=== PATIENT | male | born 1950 | race Caucasian/White ===

== ENCOUNTER 2025-01-24 13:00 | Outpatient (CLI) | payer MEDICARE, SELFPAY ==
--- NOTE | ~2025-01-24 | US_ITS ---
BILATERAL LOWER EXTREMITY VENOUS ULTRASOUND Ordering provider: Fernando Venegas, History: . EDEMA . Comparison: None. FINDINGS: RIGHT LOWER EXTREMITY VEINS: --COMMON FEMORAL: Patent and free of thrombus. Normal compressibility, phasic flow and augmentation. --PROXIMAL SUPERFICIAL FEMORAL: Patent and free of thrombus. Normal compressibility, phasic flow and augmentation. --DISTAL SUPERFICIAL FEMORAL: Patent and free of thrombus. Normal compressibility, phasic flow and au gmentation. --POPLITEAL: Patent and free of thrombus. Normal compressibility, phasic flow and augmentation. --POSTERIOR TIBIAL: Patent and free of thrombus. Normal compressibility, phasic flow and augmentation . LEFT LOWER EXTREMITY VEINS: --COMMON FEMORAL: Patent and free of thrombus. Normal compressibility, phasic flow and augmentation. --PROXIMAL SUPERFICIAL FEMORAL: Patent and free of thrombus. Normal compressibility, phasic flow and augmentation. --DISTAL SUPERFICIAL FEMORAL: Patent and free of thrombus. Normal compressibility, phasic flow and au gmentation. --POPLITEAL: Patent and free of thrombus. Normal compressibility, phasic flow and augmentation. --POSTERIOR TIBIAL: Patent and free of thrombus. Normal compressibility, phasic flow and augmentation . IMPRESSION: Negative bilateral lower extremity venous US. No deep vein thrombosis. Reviewed, dictated and finalized at location A.
--- OUTSIDE RECORDS SUMMARY | 2025-01-24 13:14 | XMS_ITS | Referral Summary ---
Author Organization [facility] Physician Of [facility] [address] [place] [id number] Care Team Providers Care Cvicu Nurse Name Role Phone Fernando Venegas MD Primary Care Provider [phone] [phone] Encounters Date Type Department Care Team Description 01/08/2025 8:20 AM CDT - 01/08/2025 11:59 PM CDT Hospital Encounter [address] [address] Abnormal weight loss Discharge Disposition: Discharge to home or self care from Last 3 Months Allergies Active Allergy Reactions Criticality Noted Date Comments Sulfa (Sulfonamide Antibiotics) Unknown,Hives,Rash Medium 05/14/2015 Rash Medications busPIRone (BUSPAR) 15 mg tablet Take 1 tablet (15 mg total) by mouth 3 (three) times a day Active cinnamon bark 500 mg capsule Take 2 capsules (1,000 mg total) by mouth daily Active turmeric-turmer ic root extract 450-50 mg capsule Take 1 tablet by mouth daily Active cetirizine (ZyrTEC) 10 mg tablet Take 1 tablet (10 mg total) by mouth daily Active cholecalciferol (VITAMIN D-3) 2,000 unit tablet Active omeprazole (PriLOSEC) 20 mg capsule 1 capsule (20 mg total) daily Active coenzyme Q10 10 mg capsule Take 1 tablet by mouth daily Active atorvastatin (LIPITOR) 10 mg tablet Take 1 tablet (10 mg total) by mouth nightly 0 Active olmesartan (BENICAR) 20 mg tablet Take 1 tablet (20 mg total) by mouth daily 2 Active vitamins A,C,E-zinc-drea er 7,160-113-100 jzwr-do-ynrn tablet,delayed release (DR/EC) Take 2 capsules by mouth daily Active aspirin 81 mg enteric coated tabletIndicatio ns:Deep Vein Thrombosis Prevention Take 1 tablet (81 mg total) by mouth 2 (two) times a day 60 tablet 2 Active Additional Information Patient not taking.Reported on 12/24/2022 HYDROcodone-jose taminophen (NORCO) 10-325 mg per tabletIndicatio ns:Pain Take 1 tablet by mouth every 4 (four) hours as needed for pain 40 tablet 2 Active Additional Information Patient not taking.Reported on 07/23/2022 Active Problems Problem Noted Date Diagnosed Date Arthrosis of ankle, right 07/08/2022 Primary osteoarthritis of right ankle 05/28/2022 Overview (05/28/2022): Added automatically from request for surgery [id number] Social History Tobacco Use Types Packs/Day Years Used Date Smoking Tobacco: Never Smokeless Tobacco: Never Tobacco Cessation:Counseling Given: Not Answered Alcohol Use Standard Drinks/Week Comments Yes 0 (1 standard drink = 0.6 oz pur e alcohol) Social Connection and Isolat ion Panel [NHANES] Answer Date Recorded In a typical week, how many times do you talk on the phone with family, friends, or neighbors? More than three times a week 07/09/2022 How often do you get togethe r with friends or relatives? More than three times a week 07/09/2022 How often do you attend chur ch or jehovah's witness services? Never 07/09/2022 Do you belong to any clubs o r organizations such as protestant groups, unions, fraternal or athletic groups, or school groups? No 07/09/2022 How often do you attend meet ings of the clubs or organizations you belong to? Never 07/09/2022 Are you , , di vorced, , never , or living with a partner? 07/09/2022 AUDIT-C Answer Date Recorded Q1: How often do you have a drink containing alc ohol? Monthly or less 07/08/2022 Q2: How many drinks containi ng alcohol do you have on a typical day when you are drinking? 1 or 2 07/08/2022 Q3: How often do you have si x or more drinks on one occasion? Never 07/08/2022 Overall Financial Resource Strain (CARDIA) Answe r Date Recorded How hard is it for you to pa y for the very basics like food, housing, medical care, and heating? Not hard at all 07/09/2022 PRAPARE - Transportation Answer Date Re corded In the past 12 months, has l ack of transportation kept you from medical appointments or from getting medications? No 06/13 In the past 12 months, has l ack of transportation kept you from meetings, work, or from getting things needed for daily living? 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 Gender Identity Not on file Sexual Orientation Not on file Last Filed Vital Signs Vital Sign [place] Time Taken Comments Blood Pressure 123/65 07/09/2022 11:00 AM CUTTING SUPERVISOR Pulse 88 07/09/2022 11:00 AM CUTTING SUPERVISOR Temperature 36.6 C (97.9 F) 07/09/2022 11:00 AM CUTTING SUPERVISOR Respiratory Rate 18 07/09/2022 11:00 AM CUTTING SUPERVISOR Oxygen Saturation 96% 07/09/2022 11:00 AM CUTTING SUPERVISOR Inhaled Oxygen Concentration - - Weight 99.3 kg (219 lb) 12/24/2022 10:42 AM CDT Height 175.3 cm (5' 9) 12/24/2022 10:42 AM CDT Body Mass Index 32.34 12/24/2022 10:42 AM CDT Plan of Treatment Not on file Medical Devices Implanted Type Area Support Architect Device Identifier Shelf Expiration Date Model / Serial / Lot Fina Doss l: Knee Synthes Lcp 52mm 6 Hole Low Profile Cut To Length Plate Bone Stainless 249.676 - [id number] Implanted:Qty: 1 on 07/08/2022 by Wallace Alfaro DO at [facility] Right: Ankle Synthes I 249.676 / / Synthes 2.4mm 4mm 28mm Self Tap Self Retain Stardrive Low Profile Cortex 201.778 - [id number] Implanted:Qty: 1 on 07/08/2022 by Wallace Alfaro DO at [facility] Right: Ankle Synthes I 201.778 / / Synthes 2.4mm 4mm 30mm Self Tap Self Retain Stardrive Low Profile Cortex 201.780 - [id number] Implanted:Qty: 1 on 07/08/2022 by Wallace Alfaro DO at [facility] Right: Ankle Synthes I 201.780 / / Synthes 2.4mm 4mm 36mm Self Tap Self Retain Stardrive Low Profile Cortex 201.786 - [id number] Implanted:Qty: 1 on 07/08/2022 by Wallace Alfaro DO at [facility] Right: Ankle Synthes I 201.786 / / [employer] Infinity Knee 3 Tray Tibial Adaptis [id number] - [id number] Implanted:Qty: 1 on 07/08/2022 by Wallace Alfaro DO at [facility] Right: Ankle [employer] 01/07/2028 [id number] / / [id number] [employer] Inbone Sulcus Ankle 3 Dome Component Talar [id number] - [id number] Implanted:Qty: 1 on 07/08/2022 by Wallace Alfaro DO at [facility] Right: Ankle [employer] 05/19/2030 [id number] / / [id number] [employer] Ankle 1 Large 10mm Stem Talar [id number] - [id number] Implanted:Qty: 1 on 07/08/2022 by Wallace Alfaro DO at [facility] Right: Ankle [employer] 01/06/2029 [id number] / / [id number] [employer] Inbone 8mm Ankle 3 Implant Fixation Everlast [id number] - [id number] Implanted:Qty: 1 on 07/08/2022 by Wallace Alfaro DO at [facility] Right: Ankle [employer] [id number] 01/22/2028 [id number] / / [id number] [employer] Screw Bone Cannulated St Full Thread Darco 4.0x60mm Ti [id number] - [id number] Implanted:Qty: 1 on 07/08/2022 by Wallace Alfaro DO at [facility] Right: Ankle [employer] [id number] / / [employer] Speedbridge Jumpstart Achilles System Fixation Biocomposite Ster [id number] - [id number] Implanted:Qty: 1 on 07/08/2022 by Wallace Alfaro DO at [facility] Right: Ankle [employer] 01/09/2026 [id number] / / [id number] Synthes 6.5mm 7.9mm 2.9mm 55mm 16mm Cannulated Self Tap Self Drill 408.406 - [id number] Implanted:Qty: 2 on 07/08/2022 by Wallace Alfaro DO at [facility] Right: Ankle Synthes I 408.406 / / Explanted Type Area Support Architect Device Identifier Shelf Expiration Date Model / Serial / Lot A[employer] K-Wire 1.4mm 228mm Wire Fixation [id number] - [id number] Explanted:Qty: 2 on 07/08/2022 at [facility] Right: Ankle [employer] [id number] / / Procedures Procedure Name Priority Date/Time Associated Diagnosis Comments CT ABDOMEN PELVIS W WO CONTRAST Schedule Routine, Read Routine (OP Routine) 01/08/2025 8:45 AM CDT Abnormal weight loss POCT CREATININE FOR CONTRAST EVALUATION Routine 01/08/2025 8:41 AM CDT PSA DIAGNOSTIC Routine Gen Lab 05/01/2017 12:39 PM CDT from Last 3 Months or Most Recently Relevant to Health Maintenance Results * CT Abdomen Pelvis W WO Contrast (01/08/2025 8:45 AM CDT) Anatomical Region Laterality Modality Body N/A Computed Tomogra phy 01/12/2025 8:27 AM CDT Narrative 01/12/2025 8:32 AM CDT EXAM DESCRIPTION: CT ABDOMEN PELVIS W WO CONTRAST REASON FOR STUDY: R63.4 Nausea since the 24 of november. 20 lbs weight loss in 6 weeks, due to loss of appetite and nausea when eating TECHNIQUE: CT scan of the abdomen and pelvis performed without and with intravenous and without oral contrast using helical scanning technique with dynamic intravenous contrast injection. Reconstructed coronal and sagittal MPR images reviewed. All images stored on PACS. Automated exposure control was used as a dose optimization technique for this examination. CONTRAST TYPE/DOSE: 100mL of IOVERSOL 350 MG IODINE/ML INTRAVENOUS SYRINGE injected via intravenous COMPARISON: 04/10/2017 FINDINGS: LOWER CHEST: No significant pulmonary abnormalities. No effusion. LIVER: Normal size. No identified cystic or solid masses. GALLBLADDER: Normally distended BILE DUCTS: No intrahepatic or extrahepatic ductal dilatation. SPLEEN: Normal size. No focal lesions. PANCREAS: No identified cystic or solid masses. No significant calcifications. No adjacent inflammation or peripancreatic fluid collections. Pancreatic duct not dilated. ADRENALS: Normal. KIDNEYS/URINARY TRACT: No obstructing stone or hydronephrosis. Lower pole caliceal stone on the right measures 0.4 cm. No perinephric stranding. Urinary bladder is unremarkable. GI: No dilated bowel loops. No obvious wall thickening. Normal appendix. No significant diverticular disease. PERITONEUM: No ascites or free air. RETROPERITONEUM: No mass or adenopathy. REPRODUCTIVE: No significant abnormality. VASCULATURE: No abdominal aortic aneurysm. MUSCULOSKELETAL: Minimal right-sided joint effusion at the hip. OTHER: No other abnormality. IMPRESSION: 1. No acute finding. 2. 0.4 cm nonobstructing lower pole caliceal stone on the right. 3. Minimal right-sided joint effusion at the hip. THIS IS AN ELECTRONICALLY VERIFIED FINAL REPORT 01/12/2025 8:32 AM - Electronically signed by Mike Ferro M.D. RB: NOELLE Report ID: [id number] [place] Location: [id number] Procedure Note Mike Ferro MD - 01/12/2025 EXAM DESCRIPTION: CT ABDOMEN PELVIS W WO CONTRAST REASON FOR STUDY: R63.4 Nausea since the 24 of november. 20 lbs weight loss in 6 weeks, due to lossof appetite and nausea when eating TECHNIQUE: CT scan of the abdomen and pelvis performed without and with intravenous and without oral contrast using helical scanning techniquewith dynamic intravenous contrast injection. Reconstructed coronal and sagittalMPR images reviewed. All images stored on PACS. Automated exposure control was used as a dose optimization technique for this examination. CONTRAST TYPE/DOSE: 100mL of IOVERSOL 350 MG IODINE/ML INTRAVENOUSSYRINGE injected via intravenous COMPARISON: 04/10/2017 FINDINGS: LOWER CHEST: No significant pulmonary abnormalities. Noeffusion. LIVER: Normal size. No identified cystic or solid masses. GALLBLADDER: Normally distended BILE DUCTS: No intrahepatic or extrahepatic ductal dilatation. SPLEEN: Normal size. No focal lesions. PANCREAS: No identified cystic or solid masses. No significant calcifications. No adjacent inflammation or peripancreatic fluidcollections. Pancreatic duct not dilated. ADRENALS: Normal. KIDNEYS/URINARY TRACT: No obstructing stone or hydronephrosis. Lower pole caliceal stone on the right measures 0.4 cm. No perinephric stranding. Urinary bladder is unremarkable. GI: No dilated bowel loops. No obvious wall thickening. Normalappendix. No significant diverticular disease. PERITONEUM: No ascites or free air. RETROPERITONEUM: No mass or adenopathy. REPRODUCTIVE: No significant abnormality. VASCULATURE: No abdominal aortic aneurysm. MUSCULOSKELETAL: Minimal right-sided joint effusion at the hip. OTHER: No other abnormality. IMPRESSION: 1. No acute finding. 2. 0.4 cm nonobstructing lower pole caliceal stone on the right. 3. Minimal right-sided joint effusion at the hip. THIS IS AN ELECTRONICALLY VERIFIED FINAL REPORT 01/12/2025 8:32 AM - Electronically signed by Mike Ferro M.D. RB: NOELLE Report ID: [id number] [place] Location: [id number] Lucero Jones MD IM CT PROCEDURES Final R esult * POCT creatinine for contrast evaluation (01/08/2025 8:41 AM CDT) Creatinine POC 0.80 0.80 - 1.30 mg/dL Comment:Testing performed by : [facility], [address] [place] [address]., [address] Blood 01/08/2025 8:41 AM CDT 01/08/2025 8:41 AM CDT us Lucero Jones MD POINT OF CARE TEST ORDERA BLES Final Result [facility] [address] [facility] Department [place] [address] * PSA diagnostic (05/01/2017 12:39 PM CDT) PSA-Total 0.3 0.1 - 4.0 ng/mL [facility] Blood specimen (specimen) 05/01/2017 12:39 PM CDT 05/01/2017 12:44 PM CDT us Notinfile Unknown LAB BLOOD ORDERABLES Final Res ult Performing Organization Address City/[facility] Co de Phone Number [facility] Department [place] [address] from Last 3 Months or Most Recently Relevant to Health Maintenance Insurance MEDICARE [facility] MEDICARE [facility] MEDICARE Care Teams Cvicu Nurse Relationship Specialty Start Date End Date Fernando Venegas MD [phone] [address] PCP - General Family Medicine 12/30/24
--- OUTSIDE RECORDS SUMMARY | 2025-01-24 13:14 | XMS_ITS | Clinical Summary ---
Author Organization [facility] Physician Of [facility] [address] [place] [id number] Care Team Providers Care Quality Systems Manager Name Role Phone Fernando Venegas MD Primary Care Provider +1 [phone] Allergies Active Allergy Reactions Criticality Noted Date [...] daily 2 Active vitamins A,C,E-zinc-drea er 7,160-113-100 xzkk-tr-anlg tablet,delayed release (DR/EC) Take 2 capsules by [...] (05/28/2022): Added automatically from request for surgery [id number] Encounters Date Type Department Care Team Description 01/08/2025 8:20 AM CDT - 01/08/2025 11:59 PM CDT Hospital Encounter [address] [address] Abnormal weight loss Discharge Disposition: Discharge to home or self care from Last 3 Months Surgical History Surgery Date Site/Laterality Comments CA ARTHROPLASTY KNEE TIBIAL PLATEAU 07/13/2010 - 07/12/2011 Left Knee Replacement - (Added by TW Conv) CA BX/EXC LYMPH NODE OPEN SUPERFICIAL 07/13/2014 - 07/12/2015 N/A Biopsy Lymph Node - (Added by TW Conv) EXTRACORPOREAL SHOCK WAVE LITHOTRIPSY N/A Lithotripsy - (Added by TW Conv); 8 and 24 years ago CA PROSTATE NEEDLE BIOPSY ANY APPROACH Needle Biopsy Of Prostate - (Added by TW Conv) SKIN BIOPSY Medical History Medical History Date Comments Prostate cancer (HCC) Gastric reflux Hypercholesteremia Hypertension Kidney stone GERD (gastroesophageal reflux disease) Arthritis Family History Medical History Relation Name Comments Hypertension Father Family history of hypertension - (Added by TW Conv) Diabetes Mother Family history of diabetes mellitus - (Added by TW Conv) Hypertension Other Family history of hypertension - (Added by TW Conv) Relation Name Status Comments Father Mother Other Social History Tobacco Use Types Packs/Day Years [...] often do you attend chur ch or restoration services? 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 [employer] MEDIA Gender Identity Not on file Sexual Orientation Not on file Obstetrics History Last Filed Vital Signs Vital Sign [place] Time Taken Comments Blood Pressure 123/65 07/09/2022 11:00 AM PROJECT MANAGER [employer]TERTAINMENT [employer] MEDIA Pulse 88 07/09/2022 11:00 AM PROJECT MANAGER ENTERTAINMENT AND MEDIA Temperature 36.6 C (97.9 F) 07/09/2022 11:00 AM PROJECT MANAGER ENTERTAINMENT AND MEDIA Respiratory Rate 18 07/09/2022 11:00 AM PROJECT MANAGER ENTERTAINMENT AND MEDIA Oxygen Saturation 96% 07/09/2022 11:00 AM PROJECT MANAGER ENTERTAINMENT AND MEDIA Inhaled Oxygen Concentration - - Weight 99.3 kg (219 lb) 12/24/2022 10:42 AM CDT Height 175.3 cm (5' 9) 12/24/2022 10:42 AM CDT Body Mass Index 32.34 12/24/2022 10:42 AM CDT Plan of Treatment Health Maintenance Due Date Last Done Comments Colon Cancer Screening-Colonoscopy 1950 Depression Screening 1950 Hepatitis C Screening 1950 Hepatitis B Screening 1969 Well Visit 65+ 2016 Pneumococcal vaccine 65+ (2 of 2 - PCV) 06/28/2020 06/28/2019 DTaP/Tdap/Td Vaccine (1 - Tdap) 07/17/2020 Fall Risk Assessment 07/09/2023 07/09/2022 Covid-19 Vaccine (2023-2 5 season) 2024 04/10/2022, 02/12/2022, 12/04/2021, Additional history exists Influenza Vaccine (#1) 2025 2, 03/21/2021, 03/02/2018, Additional history exists Prostate Cancer Screening-PSA Discontinued 05/01/2017 Zoster Vaccine Completed 05/18/2018, 03/01/2018 Abdominal Aortic Aneurysm (A AA) Screen Completed 01/08/2025, 07/03/2017, 07/03/2017, Additional history exists Medical Devices Implanted Type Area Chemical Plant Technical Director Device Identifier Shelf Expiration Date Model / Serial / Lot Fina Doss l: Knee Synthes Lcp 52mm 6 Hole Low Profile Cut To Length Plate Bone Stainless 249.676 - [id number] Implanted:Qty: 1 on 07/08/2022 by Wallace Alfaro DO at [facility] Right: Ankle Synthes I 249.676 / / Synthes 2.4mm 4mm 28mm Self Tap Self Retain Stardrive Low Profile Cortex 201.778 - [id number] Implanted:Qty: 1 on 07/08/2022 by Wallace Alfaro DO at [facility] Right: Ankle Synthes I 201.778 / / Synthes 2.4mm 4mm 30mm Self Tap Self Retain Stardrive Low Profile Cortex 201.780 - [id number] Implanted:Qty: 1 on 07/08/2022 by Wallace Alfaro DO at [facility] Right: Ankle Synthes I 201.780 / / Synthes 2.4mm 4mm 36mm Self Tap Self Retain Stardrive Low Profile Cortex 201.786 - [id number] Implanted:Qty: 1 on 07/08/2022 by Wallace Alfaro DO at [facility] Right: Ankle Synthes I 201.786 / / [employer] Infinity Knee 3 Tray Tibial Adaptis [id number] - [id number] Implanted:Qty: 1 on 07/08/2022 by Wallace Alfaro DO at [facility] Right: Ankle [employer] 01/07/2028 [id number] / / [id number] [employer] Inbone Sulcus Ankle 3 Dome Component Talar [id number] - [id number] Implanted:Qty: 1 on 07/08/2022 by Wallace Alfaro DO at [facility] Right: Ankle [employer] 05/19/2030 [id number] / / [id number] [employer] Ankle 1 Large 10mm Stem Talar [id number] - [id number] Implanted:Qty: 1 on 07/08/2022 by Wallace Alfaro DO at [facility] Right: Ankle [employer] 01/06/2029 [id number] / / [id number] [employer] Inbone 8mm Ankle 3 Implant Fixation Everlast [id number] - [id number] Implanted:Qty: 1 on 07/08/2022 by Wallace Alfaro DO at [facility] Right: Ankle [employer] [id number] 01/22/2028 [id number] / / [id number] [employer] Screw Bone Cannulated St Full Thread Darco 4.0x60mm Ti [id number] - [id number] Implanted:Qty: 1 on 07/08/2022 by Wallace Alfaro DO at [facility] Right: Ankle [employer] [id number] / / [employer] Speedbridge Jumpstart Achilles System Fixation Biocomposite Ster [id number] - [id number] Implanted:Qty: 1 on 07/08/2022 by Wallace Alfaro DO at [facility] Right: Ankle [employer] 01/09/2026 [id number] / / [id number] Synthes 6.5mm 7.9mm 2.9mm 55mm 16mm Cannulated Self Tap Self Drill 408.406 - [id number] Implanted:Qty: 2 on 07/08/2022 by Wallace Alfaro DO at [facility] Right: Ankle Synthes I 408.406 / / Explanted Type Area Chemical Plant Technical Director Device Identifier Shelf Expiration Date Model / Serial / Lot We[employer] K-Wire 1.4mm 228mm Wire Fixation [id number] - [id number] Explanted:Qty: 2 on 07/08/2022 at [facility] Right: Ankle [employer] [id number] / / Procedures Procedure Name Priority Date/Time [...] Mike Ferro M.D. RB: NOELLE Report ID: [id number] [place] Location: [id number] Procedure Note Mike Ferro MD - 01/12/2025 [...] Mike Ferro M.D. RB: NOELLE Report ID: [id number] [place] Location: [place] [address] Lucero Jones MD IMG CT PROCEDURES Final R esult * POCT creatinine for contrast evaluation (01/08/2025 8:41 AM CDT) Creatinine POC 0.80 0.80 - 1.30 mg/dL Comment:Testing performed by : [facility], [address] [place] [address]., [id number] Blood 01/08/2025 8:41 AM CDT 01/08/2025 8:41 AM CDT Lucero Jones MD POINT OF CARE TEST ORDERA BLES Final Result [facility] [address] [facility] Department [place] [address] * PSA diagnostic (05/01/2017 12:39 PM CDT) PSA-Total 0.3 0.1 - 4.0 ng/mL [facility] Blood specimen (specimen) 05/01/2017 12:39 PM CDT 05/01/2017 12:44 PM CDT us Notinfile Unknown LAB BLOOD ORDERABLES Final Res ult [facility] Department [place] [address] from Last 3 Months or Most Recently Relevant to Health Maintenance Insurance MEDICARE [employer] [place] MEDICARE [employer] [facility] MEDICARE Care Teams Quality Systems Manager Relationship Specialty Start Date End Date Fernando Venegas MD [address] [address] PCP - General Family Medicine 12/30/24
--- OUTSIDE RECORDS SUMMARY | 2025-01-24 13:14 | XMS_ITS | Clinical Summary ---
Author Organization [facility] Address [address] [place] [address] Care Team Providers Care Food Prep Worker Name Role Phone Gatito Little MD Primary Care Provider Allergies Active Allergy Reactions Criticality Noted Date Comments Sulfa Antibiotics Hives,Rash Low 07/15/2017 Medications atorvastatin 10 MG tablet Take 1 tablet by mouth nightly. 05/02/2017 Active busPIRone 15 MG tablet Take 1 tablet by mouth 2 (two) times a day. 05/05/2017 Active lisinopril 5 MG tablet Take 1 tablet by mouth daily. 05/04/2017 Active omeprazole 20 MG capsule Take 20 mg by mouth daily. Active Cholecalciferol (VITAMIN D) 2000 UNITS Tab Take 1 tablet by mouth. Active Coenzyme Q10 (CO Q 10) 10 MG Cap Take 1 tablet by mouth daily. Active cetirizine 10 MG chewable tablet Chew 10 mg by mouth daily. Active Turmeric 450 MG Cap Take 1 tablet by mouth daily. Turmeric / curcumin 500mg Active CINNAMON OR Take 2,000 mg by mouth daily. Active hydrocodone-jose taminophen 5-325 MG tablet Take 1 tablet by mouth every 6 (six) hours as needed for Pain. For Moderate Pain 5 tablet 08/18/2018 Active triamcinolone 0.1 % cream 04/17/2020 Active [place]-3 Fatty Acids (OMEGA-3 2100) 1050 MG Cap Active olmesartan 20 MG tablet Take 20 mg by mouth daily. 11/02/2020 Active FLUoxetine 10 MG tablet 12/11/2020 Active aspirin EC (ASPIRIN EC) 81 MG tablet Active calcium carb-cholecalci ferol 600-800 MG-UNIT tablet Activ e Active Problems Problem Noted Date Diagnosed Date Nephrolithiasis 06/30/2017 History of kidney stones 06/26/2017 Resolved Problems Problem Noted Date Diagnosed Date Resolved Date Encounter for preventive health examination 06/26/2017 12/31/2020 Immunizations Immunization Administration Dates Next Due Fluzone High Dose - >Age 65 (Prefilled Syringe) 03/02/2018,04/14/2016 Influenza Adult (Generic) 04/26/2013 Pneumococcal (Pneumovax 23) 06/28/2019 Shingrix 05/18/2018,03/01/2018 Td (Tenivac) preservative free 07/16/2020 Family History Medical History Relation Comments Hypertension Brother Asthma Daughter 1 Diabetes Mother Hypertension Mother Stroke Mother Cancer Paternal Uncle prostate cancer Relation Status Comments Brother Alive Daughter 1 Alive Daughter 2 Alive Father (Age 64) abscess post h ernia Mother (Age 80s) stroke Paternal Uncle Son Alive Social History Tobacco Use Types Packs/Day Years Used Date Smoking Tobacco: Never Smokeless Tobacco: Never Tobacco Cessation:Counseling Given: No Alcohol Use Standard Drinks/Week Comments No 0 (1 standard drink = 0.6 oz pur e alcohol) PHQ-2 Answer Date Recorded PHQ-2 Score - If the patient scores above 3, please move on to questions 3-9 0 12/24/2020 Sex and Gender Information Value Date Recorded Sex Assigned at Male 12/24/2020 4:09 PM CDT Legal Sex Male 7:04 PM CDT Gender Identity Male 12/24/2020 4:09 PM CDT Sexual Orientation Straight 12/24/2020 4: 09 PM CDT Last Filed Vital Signs Vital Sign Reading Time Taken Comments Blood Pressure 136/66 04/04/2021 4:14 PM CDT Pulse 79 04/04/2021 4:14 PM CDT Temperature 36.6 C (97.8 F) 08/18/2018 1:15 PM FRAMEWORK DEVELOPER Respiratory Rate 18 08/18/2018 1:15 PM FRAMEWORK DEVELOPER Oxygen Saturation 95% 04/04/2021 4:14 PM CDT Inhaled Oxygen Concentration - - Weight 95.2 kg (209 lb 12.8 oz) 04/04/2021 4:14 PM CDT Height 172.7 cm (5' 8) 04/04/2021 4:14 PM CDT Body Mass Index 31.9 04/04/2021 4:14 PM CDT Plan of Treatment Health Maintenance Due Date Last Done Comments Colorectal Cancer Screening Colonoscopy (10 Years) 1950 Hepatitis C 1969 Annual Medicare Wellness Visit 2016 Pneumococcal Vaccine: 50+ Years (2 of 2 - PCV) 06/28/2020 06/28/2019 DTaP, Tdap and Td Vaccines ( 1 - Tdap) 07/17/2020 07/16/2020 COVID-19 Vaccine (3 - 2023-2 5 season) 2024 08/07/2020, 07/10/2020 RSV Immunization or 60+ Years (1 - 1-dose 75+ series) 2026 Zoster Vaccines Completed 05/18/2018, 03/01/2018 Meningococcal B Vaccine Aged Out No l onger eligible based on patient's age to complete this topic Meningococcal Vaccine Aged Out No juwan dereje eligible based on patient's age to complete this topic RSV Immunizations Under 20 Months Aged Out No longer eligible b ased on patient's age to complete this topic Insurance MEDICARE [employer] Care Teams Food Prep Worker Relationship Specialty Start Date End Date Gatito Little MD [address] [facility] [address] [place] [address] PCP - General 04/04/14
--- OUTSIDE RECORDS SUMMARY | 2025-01-24 13:14 | XMS_ITS | Encounter Summary ---
Author Organization [facility] Facility Care Team Providers Care Tap Puller Name Role Phone Gatito Little MD Primary Care Provider + [phone] Unknown, Notinfile Primary Care Provider Unavail able Gatito Little MD Primary Care Provider + [phone] Fernando Venegas MD Primary Care Provider [phone] Encounter Details Date Type Department Care Team (Latest Contact Info) Description 05/14/2015 Orders Only [facility] CLINCONV Provider, MD Raffy [address] [place] [address] Social History Tobacco Use Types Packs/Day Years Used Date Smoking Tobacco: Never Assessed Sex and Gender Information Value Date Recorded Sex Assigned at Not on file Legal Sex Male 8:15 PM BLOCK ENGRAVER Gender Identity Not on file Sexual Orientation Not on file documented as of this encounter Plan of Treatment Not on file documented as of this encounter Procedures Procedure Name Priority Date/Time Associated Diagnosis Comments PROCEDURE - RESULT 06/04/2015 12 :00 AM BLOCK ENGRAVER documented in this encounter Results * PROCEDURE - RESULT (06/04/2015 12:00 AM BLOCK ENGRAVER) Narrative 06/04/2015 12:00 AM BLOCK ENGRAVER Ordered by an unspecified provider. us Historical Provider Final Res ult documented in this encounter Visit Diagnoses Not on filedocumented in this encounter Care Teams Tap Puller Relationship Specialty Start Date End Date Gatito Little MD [address] [address] PCP - General 03/20/17 04/08/17 Unknown, Notinfile PCP - General 04/09/17 04/09/17 Gatito Little MD [address] [address] PCP - General 04/10/17 12/29/24 Fernando Venegas MD [address] [address] PCP - General Family Medicine 12/30/24 documented as of this encounter
--- OUTSIDE RECORDS SUMMARY | 2025-01-24 13:14 | XMS_ITS | Encounter Summary ---
Author Organization [facility] Facility Care Team Providers Care Clinic Specialist Name Role Phone Gatito Little MD Primary Care Provider + [phone] Unknown, Notinfile Primary Care Provider Unavail able Gatito Little MD Primary Care Provider + [phone] Fernando Venegas MD Primary Care Provider [phone] Encounter Details Date Type Department Care Team (Latest Contact Info) Description 05/01/2015 Orders Only [facility] CLINCONV Provider, MD Raffy [address] [place] [address] Social History Tobacco Use Types Packs/Day Years Used Date Smoking Tobacco: Never Assessed Sex and Gender Information Value Date Recorded Sex Assigned at Not on file Legal Sex Male 8:15 PM HEALTH COACH Gender Identity Not on file Sexual Orientation Not on file documented as of this encounter Plan of Treatment Not on file documented as of this encounter Procedures Procedure Name Priority Date/Time Associated Diagnosis Comments SCAN - PATHOLOGY 08/29/2015 12:0 0 AM HEALTH COACH documented in this encounter Results * SCAN - PATHOLOGY (08/29/2015 12:00 AM HEALTH COACH) Narrative 08/29/2015 12:00 AM HEALTH COACH Ordered by an unspecified provider. us Historical Provider Final Res ult documented in this encounter Visit Diagnoses Not on filedocumented in this encounter Care Teams Clinic Specialist Relationship Specialty Start Date End Date Gatito Little MD [address] [address] PCP - General 03/20/17 04/08/17 Unknown, Notinfile PCP - General 04/09/17 04/09/17 Gatito Little MD [address] [address] PCP - General 04/10/17 12/29/24 Fernando Venegas MD [address] [address] PCP - General Family Medicine 12/30/24 documented as of this encounter
== END 2025-01-24 13:01 | disposition home or self-care (01) ==
PROVIDERS: Visit Provider Family Medicine
DX: R60.9 Edema, unspecified (principal)
CPT/HCPCS: 93970

== ENCOUNTER 2025-02-23 14:23 | Outpatient (CLI) | payer MEDICARE, SELFPAY ==
--- NOTE | 2025-02-23 | ECHO_ITS ---
Patient Info Name: Mike Diego Age: 74 years : 1950 Gender: Male Ht: 68 in Wt: 186 lbs BSA: 2.03 m2 HR: 90 bpm BP: 129 / 78 mmHg Heart Rhythm: Sinus Rhythm Technical Quality: Fair Exam Date: 02/23/2025 3:02 PM Patient Status: O Admit Date: 02/23/2025 Exam Type: CA echo doppler color flow Complete two-dimensional, color flow and Doppler transthoracic echocardiogram is performed. Pot Annealer: Suze Villasenor Attending Provider: Fernando Venegas Summary 1. Complete two-dimensional, color flow and Doppler transthoracic echocardiogram is performed. 2. Normal left ventricular size and systolic function without wall motion abnormality. 3. Grade 1 diastolic noncompliance. 4. Mild aortic valve sclerosis with well maintained leaflet excursion. Left Ventricle Left ventricular chamber dimension is normal. Left ventricular systolic function is normal, estimated at 65-70. The left ventricular diastolic function is grade I diastolic dysfunction. Right Ventricle Right ventricular chamber dimension is normal. Left Atria Left atrial chamber dimension is normal. Right Atria Right atrial chamber dimension is normal. Aortic Valve The aortic valve is trileaflet. There is mild aortic valve sclerosis. Pulmonic Valve The pulmonic valve is normal. Mitral Valve The mitral valve has normal leaflets. The mitral valve annulus is mildly calcified. Tricuspid Valve The tricuspid valve leaflets are normal. There is mild tricuspid valve regurgitation. Pericardium/Pleural The pericardium appears normal. Aorta The aortic root size at the sinus of Valsalva is normal. Left Ventricular Outflow Tract Name Value Normal LVOT 2D LVOT Diameter 2.1 cm LVOT Doppler LVOT Peak Velocity 97 cm/s LVOT Peak Gradient 4 mmHg LVOT Mean Gradient 2 mmHg LVOT VTI 19 cm LVOT VTI/AV VTI Ratio 0.5 LVOT Stroke Volume 69 ml LVOT CO 14.8 l/min LVOT CI 7.3 l/min/m2 Pulmonic Valve Name Value Normal PV Doppler PV Peak Velocity 133 cm/s PV Peak Gradient 7 mmHg Mitral Valve Name Value Normal MV Diastolic Function MV E Peak Velocity 75 cm/s MV A Peak Velocity 99 cm/s MV E/A 0.8 MV Decel Time (PW) 252 ms MV Annular TDI MV E/e' (Septal) 9.1 MV E/e' (Lateral) 5.8 MV E/e' (Average) 7.4 Tricuspid Valve Name Value Normal TV Regurgitation Doppler TR Peak Velocity 266 cm/s TR Peak Gradient 19 mmHg Estimated PAP/RSVP RA Pressure 10 mmHg <=5 PA Systolic Pressure 38 mmHg <36 RV Systolic Pressure 38 mmHg <36 TV Annular TDI TV Lateral Mi s' Velocity 11.4 cm/s >=9.5 Aorta Name Value Normal Ascending Aorta Ao Root Diameter (MM) 3.8 cm Ao Root Diam Index (MM) 1.9 cm/m2 Aortic Valve Name Value Normal AV Doppler AV Peak Velocity 210 cm/s AV Peak Gradient 18 mmHg AV Mean Gradient 10 mmHg AV VTI 37 cm AV Area (Cont Eq VTI) 1.9 cm2 >=3.0 AV Area (Cont Eq [place]) 1.7 cm2 AV DI ([place]) 0.46 AV Regurgitation 2D LVOT Area 3.6 cm2 Ventricles Name Value Normal LV Dimensions 2D/MM IVS Diastolic Thickness (2D) 1.1 cm 0.6-1.0 LVID Diastole (2D) 4.3 cm 4.2-5.8 LVIW Diastolic Thickness (2D) 1.1 cm 0.6-1.0 LVID Systole (2D) 3.1 cm 2.5-4.0 LVOT Diameter 2.1 cm LV Mass (2D Cubed) 164.14 g 88.00-224.00 LV Mass Index (2D Cubed) 81 g/m2 49-115 Relative Wall Thickness (2D) 0.51 <=0.42 LV Fractional Shortening/Ejection Fraction 2D/MM LV Fractional Shortening (2D) 29 % 25-43 LV EF (2D Teichholz) 55 % LV Diastolic Volume (4C MOD) 95 ml LV EF (4C MOD) 63 % LV Diastolic Volume (2C MOD) 93 ml LV EF (2C MOD) 70 % LV Diastolic Volume (BP MOD) 94 ml 62-150 LV Diastolic Volume Index (BP MOD) 46 ml/m2 34-74 LV Systolic Volume (BP MOD) 32 ml 21-61 LV Systolic Volume Index (BP MOD) 16 ml/m2 11-31 LV EF (BP MOD) 66 % 52-72 LV Diastolic Length (4C) 8.1 cm LV Systolic Length (4C) 6.2 cm LV Stroke Volume (4C MOD) 60 ml Atria Name Value Normal LA Dimensions LA Dimension (MM) 3.6 cm 3.0-4.0 LA Volume (4C A-L) 49 ml LA Volume (BP A-L) 49 ml RA Dimensions RA Systolic Major [place] Length (4C) 4.5 cm 2.1-2.7 RA Area (4C) 11.6 cm2 <=18.0 Report Signatures
--- OUTSIDE RECORDS SUMMARY | 2025-02-23 14:27 | XMS_ITS ---
Author Organization [facility] Address [address] [place], [place] [address] Care Team Providers Care Wood Barrel Reconditioner Name Role Phone Fernando Venegas Primary Care Provider Chana Kowalski Unavailable [phone] REASON FOR VISIT Steroid prescription MEDICATIONS Medication SIG (Take, Route, Fr equency, Duration) Notes Start Date End Date Status FLUoxetine 10 mg 1 tab(s) orally once a day Active predniSONE 5 mg 6 tablets for 2 days then decrease by 1 tablet every 2 days until rasheed orally once a day for 12 days 02/17/2025 Active busPIRone 15 mg 1 tab(s) orally 2 ti mes a day for 30 day(s) Active olmesartan 20 mg 1 tab(s) orally once a day for 30 day(s) Active cetirizine 10 mg 1 tab(s) orally once a day Active furosemide 40 mg 1 tab(s) orally once a day Active pantoprazole 40 mg 1 tab(s) orally once a day Active sucralfate 1 g 1 tab(s) orally 4 ti mes a day (before meals and at bedtime) Ac tive Encounters Encounter Location Date Provider Diagnosis [facility] [address], [address] [place], [place] [id number] 02/17/2025 Chana Gonsalves PLAN OF TREATMENT Medication Medication Name Sig Start Date Stop Date Notes predniSONE 5 mg 6 tablets for 2 days then decrease by 1 tablet every 2 days until rasheed orally once a day for 12 days 02/17/2025 Next Appt Details Provider Name:Shoshana de la vega, 03/03/2025 08:20:00 AM, [address], [address], [place], [place], [id number],
--- OUTSIDE RECORDS SUMMARY | 2025-02-23 14:27 | XMS_ITS | Patient Health Record ---
Author Organization [facility] Address [address] [facility] [address] [place], [place] [address] Care Team Providers Care Belt Maker Name Role Phone Fernando Venegas Primary Care Provider Chana Kowalski Unavailable [phone] ALLERGIES Allergen (clinical drug ingredient) Drug/Non Drug Allergy documented on EMR Reaction Allergy Type Onset Date Status sulfa (uncoded) Unknown Allergy Acti ve REASON FOR REFERRAL No Information MEDICATIONS Medication SIG (Take, Route, Fr equency, [...] once a day for 30 day(s) Active furosemide 40 mg 1 tab(s) orally once a day Active pantoprazole 40 mg 1 tab(s) orally once a day Active cetirizine 10 mg 1 tab(s) orally once a day Active sucralfate 1 g 1 tab(s) orally 4 ti mes a day (before meals and at bedtime) Ac tive PROBLEMS Problem Type ICD Code Onset Dates Problem Status W/U Status Risk SNOMED Code Notes Problem Weight loss (R63.4) Active confirmed 952123590 VITAL SIGNS Heart Rate 110 /min 02/17/2025 Blood pressure diastolic 62 mm Hg 02/17/2025 Height 68 in 02/17/2025 Blood pressure systolic 135 mm Hg 02/17/2025 Weight 185 lbs 02/17/2025 BMI 28.13 kg/m2 02/17/2025 Encounters Encounter Location Date Provider [facility] [address] [place], [place] [id number] 02/17/2025 Chana Gonsalves Polyarthralgia M25.5 0 ; Myalgia M79.10 ; Fatigue, unspecified type R53.83 ; Shortness of breath R06.02 and Weight loss R63.4 [facility], [address] [id number] 02/17/2025 Chana Gonsalves [facility], [address] [id number] 02/17/2025 Chana Gonsalves [facility], [address] [id number] 02/17/2025 Chana [facility]onsalves [facility] [address] [place] [address], [address] [id number] 02/17/2025 Chana Gonsalves ASSESSMENTS Encounter Date Diagnosis Assessment Notes Treatment Notes Treatment Clinical Notes Section Notes 02/17/2025 Polyarthralgia (ICD-10 - M25.50) Acute onset of several varied complaints with elevated CRP. Hx of OA/DJD on imaging. Weight loss is concerning. ?PMR- try steroid burst. Stay on PPI and sucralfate for GI protection. Remote hx of sarcoid- check CXR. Check additional labs and xrays to evaluate for an underlying inflammatory arthritis or CTD. Reviewed patients health history forms 02/17/2025 Myalgia (ICD-10 - M79.10) Acute onset of several varied complaints with elevated CRP. Hx of OA/DJD on imaging. Weight loss is concerning. ?PMR- try steroid burst. Stay on PPI and sucralfate for GI protection. Remote hx of sarcoid- check CXR. Check additional labs and xrays to evaluate for an underlying inflammatory arthritis or CTD. Reviewed patients health history forms 02/17/2025 Fatigue, unspecified type (ICD-10 - R53.83) Acute onset of several varied complaints with elevated CRP. Hx of OA/DJD on imaging. Weight loss is concerning. ?PMR- try steroid burst. Stay on PPI and sucralfate for GI protection. Remote hx of sarcoid- check CXR. Check additional labs and xrays to evaluate for an underlying inflammatory arthritis or CTD. Reviewed patients health history forms 02/17/2025 Shortness of breath (ICD-10 - R06.02) Acute onset of several varied complaints with elevated CRP. Hx of OA/DJD on imaging. Weight loss is concerning. ?PMR- try steroid burst. Stay on PPI and sucralfate for GI protection. Remote hx of sarcoid- check CXR. Check additional labs and xrays to evaluate for an underlying inflammatory arthritis or CTD. Reviewed patients health history forms 02/17/2025 Weight loss (ICD-10 - R63.4) Acute onset of several varied complaints with elevated CRP. Hx of OA/DJD on imaging. Weight loss is concerning. ?PMR- try steroid burst. Stay on PPI and sucralfate for GI protection. Remote hx of sarcoid- check CXR. Check additional labs and xrays to evaluate for an underlying inflammatory arthritis or CTD. Reviewed patients health history forms PLAN OF TREATMENT Pending Test Test Name Order Date CPK Total,Serum 02/17/2025 T4 Free 02/17/2025 Aldolase 02/17/2025 TSH 02/17/2025 Sed Rate - Westergren 02/17/2025 C-Reactive Protein, Quant 02/17/2025 HLA B 27 Disease Association 02/17/2025 BRIE,transfer serum,rm temp 02/17/2025 CCP IgG Antibodies 02/17/2025 PSA 02/17/2025 X ray : Hand left- outside order 025 X ray : Hand right- outside order 2024 X ray : Chest, PA Lateral- outside order 02/17/2025 X ray : Knee, right 2 views- outside ord er 02/17/2025 X ray : Knee, left 2 views- outside orde r 02/17/2025 Next Appt Details Provider Name:Shoshana de la vega, 03/03/2025 08:20:00 AM, [address] [facility], [address], [place], [place], [id number], Insurance Providers Payer Name Payer Address Payer Phone Subscriber Number Group Number Insured Name Patient Relationship to Insured Coverage Start Date Coverage End Date MEDICARE [address] [address] [place] [address] [id number] DylanMike carpio Self - patient is the insured 5 [employer] MCR Supplement [address] [place] [phone] [id number] PLAN G Mike Diego Self - patient is the insured 5 MEDICAL (GENERAL) HISTORY Medical History History ICD Code cataracts blurred vision tension headaches hayfever sinus problems anxiety swelling of ankles/feet high blood pressure Nausea Lack of bladder control Kidney stones erection difficulties Sarcoid (hilar LAD) Prostate cancer Surgical History Surgery Date(Month/Year) right ankle replacment 2022 prostectomy 2017 right knee replaced 2014 lithrotropsy hilar node biopsy 1990
--- OUTSIDE RECORDS SUMMARY | 2025-02-23 14:27 | XMS_ITS | Encounter Summary ---
Author Organization [facility] Facility Care Team Providers Care Mineral Industry Teacher Name Role Phone Gatito Little MD Primary Care Provider + [phone] Unknown, Notinfile Primary Care Provider Unavail able Gatito Little MD Primary Care Provider + [phone] Fernando Venegas MD Primary Care Provider [phone] Encounter Details Date Type Department Care Team (Latest Contact Info) Description 05/01/2015 Orders Only [facility] CLINCONV Provider, MD Raffy [address] [place] [address] Social History Tobacco Use Types Packs/Day Years Used Date Smoking Tobacco: Never Assessed Sex and Gender Information Value Date Recorded Sex Assigned at Not on file Legal Sex Male 8:15 PM GUEST SERVICES REPRESENTATIVE Gender Identity Not on file Sexual Orientation Not on file documented as of this encounter Plan of Treatment Not on file documented as of this encounter Procedures Procedure Name Priority Date/Time Associated Diagnosis Comments SCAN - PATHOLOGY 08/29/2015 12:0 0 AM GUEST SERVICES REPRESENTATIVE documented in this encounter Results * SCAN - PATHOLOGY (08/29/2015 12:00 AM GUEST SERVICES REPRESENTATIVE) Narrative 08/29/2015 12:00 AM GUEST SERVICES REPRESENTATIVE Ordered by an unspecified provider. us Historical Provider Final Res ult documented in this encounter Visit Diagnoses Not on filedocumented in this encounter Care Teams Mineral Industry Teacher Relationship Specialty Start Date End Date Gatito Little MD [address] [address] PCP - General 03/20/17 04/08/17 Unknown, Notinfile PCP - General 04/09/17 04/09/17 Gatito Little MD [address] [address] PCP - General 04/10/17 12/29/24 Fernando Venegas MD [address] [address] PCP - General Family Medicine 12/30/24 documented as of this encounter
--- OUTSIDE RECORDS SUMMARY | 2025-02-23 14:27 | XMS_ITS | Encounter Summary ---
Author Organization [facility] Facility Care Team Providers Care Heavy Cleaner Name Role Phone Gatito Little MD Primary Care Provider + [phone] Unknown, Notinfile Primary Care Provider Unavail able Gatito Little MD Primary Care Provider + [phone] Fernando Venegas MD Primary Care Provider [phone] Encounter Details Date Type Department Care Team (Latest Contact Info) Description 05/14/2015 Orders Only [facility] Provider, MD Raffy [address] [place] [id number] Social History Tobacco Use Types Packs/Day Years Used Date Smoking Tobacco: Never Assessed Sex and Gender Information Value Date Recorded Sex Assigned at Not on file Legal Sex Male 8:15 PM SOFTWARE INSTALLER Gender Identity Not on file Sexual Orientation Not on file documented as of this encounter Plan of Treatment Not on file documented as of this encounter Procedures Procedure Name Priority Date/Time Associated Diagnosis Comments PROCEDURE - RESULT 06/04/2015 12 :00 AM SOFTWARE INSTALLER documented in this encounter Results * PROCEDURE - RESULT (06/04/2015 12:00 AM SOFTWARE INSTALLER) Narrative 06/04/2015 12:00 AM SOFTWARE INSTALLER Ordered by an unspecified provider. us Historical Provider Final Res ult documented in this encounter Visit Diagnoses Not on filedocumented in this encounter Care Teams Heavy Cleaner Relationship Specialty Start Date End Date Gatito Little MD [address] [address] PCP - General 03/20/17 04/08/17 Unknown, Notinfile PCP - General 04/09/17 04/09/17 Gatito Little MD [address] [address] PCP - General 04/10/17 12/29/24 Fernando Venegas MD [address] [address] PCP - General Family Medicine 12/30/24 documented as of this encounter
--- OUTSIDE RECORDS SUMMARY | 2025-02-23 14:27 | XMS_ITS ---
Author Organization [facility] Address [address] [place], [place] [id number] Care Team Providers Care Project Management Analyst Name Role Phone Fernando Venegas Primary Care Provider UnavailChana Pederson Unavailable [phone] REASON FOR VISIT Message Encounters Encounter Location Date Provider Diagnosis [facility] [address], [address] [place], [place] [id number] 02/17/2025 Chana Gonsalves PLAN OF TREATMENT Next Appt Details Provider Name:Shoshana de la vega, 03/03/2025 08:20:00 AM, [address], [address], [place], [place], [phone],
--- OUTSIDE RECORDS SUMMARY | 2025-02-23 14:28 | XMS_ITS | Clinical Summary ---
Author Organization [facility] [address] [place] [id number] Care Team Providers Care Administrative Resources Associate Name Role Phone Fernando Venegas MD Primary Care Provider [phone] Allergies Active Allergy Reactions Criticality Noted Date [...] daily 2 Active vitamins A,C,E-zinc-drea er 7,160-113-100 jmla-ix-edzf tablet,delayed release (DR/EC) Take 2 capsules by [...] (05/28/2022): Added automatically from request for surgery [id number] Encounters Date Type Department Care Team Description 01/08/2025 8:20 AM CDT - 01/08/2025 11:59 PM CDT Hospital Encounter [address] [address] Abnormal weight loss Discharge Disposition: Discharge to home or self care from Last 3 Months Surgical History Surgery Date Site/Laterality Comments [place] ARTHROPLASTY KNEE TIBIAL PLATEAU 07/13/2010 - 07/12/2011 Left Knee Replacement - (Added by TW Conv) [place] BX/EXC LYMPH NODE OPEN SUPERFICIAL 07/13/2014 - 07/12/2015 N/A Biopsy Lymph Node - (Added by TW Conv) EXTRACORPOREAL SHOCK WAVE LITHOTRIPSY N/A Lithotripsy - (Added by TW Conv); 8 and 24 years ago WI PROSTATE NEEDLE BIOPSY ANY APPROACH Needle Biopsy [...] oz pur e alcohol) Social Connection and Isolation Panel Answer Date Recorded In a typical week, how many times do you talk on the phone with family, friends, or neighbors? More than three times a week 07/09/2022 How often do you get togethe r with friends or relatives? More than three times a week 07/09/2022 How often do you attend chur ch or hindu services? Never 07/09/2022 Do you belong to any clubs o r organizations such as sikhism groups, unions, fraternal or athletic groups, or [...] on file Legal Sex Male 8:15 PM TUNNELLER Gender Identity Not on file Sexual Orientation Not on file Obstetrics History Last Filed Vital Signs Vital Sign Reading Time Taken Comments Blood Pressure 123/65 07/09/2022 11:00 AM TUNNELLER Pulse 88 07/09/2022 11:00 AM TUNNELLER Temperature 36.6 C (97.9 F) 07/09/2022 11:00 AM TUNNELLER Respiratory Rate 18 07/09/2022 11:00 AM TUNNELLER Oxygen Saturation 96% 07/09/2022 11:00 AM TUNNELLER Inhaled Oxygen Concentration - - Weight 99.3 [...] history exists Medical Devices Implanted Type Area Calciner Operator Helper Device Identifier Shelf Expiration Date Model / Serial / Lot Fina Dickinsona l: Knee Synthes Lcp 52mm 6 Hole Low Profile Cut To Length Plate Bone Stainless 249.676 - [id number] Implanted:Qty: 1 on 07/08/2022 by Wallace Alfaro DO at [facility] Right: Ankle Synthes I 249.676 / / Synthes 2.4mm 4mm 28mm Self Tap Self Retain Stardrive Low Profile Cortex 201.778 - [id number] Implanted:Qty: 1 on 07/08/2022 by Wallace Alfaro DO at [facility] Right: Ankle Synthes I 201.778 / / Synthes 2.4mm 4mm 30mm Self Tap Self Retain Stardrive Low Profile Cortex 201.780 - [id number] Implanted:Qty: 1 on 07/08/2022 by Wallace Alfaro DO at [facility] Right: Ankle Synthes I 201.780 / / Synthes 2.4mm 4mm 36mm Self Tap Self Retain Stardrive Low Profile Cortex 201.786 - [id number] Implanted:Qty: 1 on 07/08/2022 by Wallace Alfaro DO at [facility] Right: Ankle Synthes I 201.786 / / [employer] Infinity Knee 3 Tray Tibial Adaptis [id number] - [id number] Implanted:Qty: 1 on 07/08/2022 by Wallace Alfaro DO at [facility] Right: Ankle [employer] 01/07/2028 [id number] / / [id number] [employer] Inbone Sulcus Ankle 3 Dome Component Talar [id number] - [id number] Implanted:Qty: 1 on 07/08/2022 by Wallace Alfaro DO at [facility] Right: Ankle [employer] 05/19/2030 [id number] / / [id number] [employer] Ankle 1 Large 10mm Stem Talar [id number] - [id number] Implanted:Qty: 1 on 07/08/2022 by Wallace Alfaro DO at [facility] Right: Ankle [employer] 01/06/2029 [id number] / / [id number] [employer] Inbone 8mm Ankle 3 Implant Fixation Everlast [id number] - [id number] Implanted:Qty: 1 on 07/08/2022 by Wallace Alfaro DO at [facility] Right: Ankle [employer] [id number] 01/22/2028 [id number] / / [id number] [employer] Screw Bone Cannulated St Full Thread Darco 4.0x60mm Ti [id number] - [id number] Implanted:Qty: 1 on 07/08/2022 by Wallace Alfaro DO at [facility] Right: Ankle [employer] [id number] / / [employer] Speedbridge Jumpstart Achilles System Fixation Biocomposite Ster [id number] - [id number] Implanted:Qty: 1 on 07/08/2022 by Wallace Alfaro DO at [facility] Right: Ankle [employer] 01/09/2026 [id number] / / [id number] Synthes 6.5mm 7.9mm 2.9mm 55mm 16mm Cannulated Self Tap Self Drill 408.406 - [id number] Implanted:Qty: 2 on 07/08/2022 by Wallace Alfaro DO at [facility] Right: Ankle Synthes I 408.406 / / Explanted Type Area Calciner Operator Helper Device Identifier Shelf Expiration Date Model / Serial / Lot Petsy K-Wire 1.4mm 228mm Wire Fixation [id number] - [id number] Explanted:Qty: 2 on 07/08/2022 at [facility] Right: Ankle Petsy [id number] / / Procedures Procedure Name Priority Date/Time [...] Mike Ferro M.D. RB: NOELLE Report ID: [id number] Reading Location: [id number] Procedure Note Mike Ferro MD - 01/12/2025 [...] Mike Ferro M.D. RB: NOELLE Report ID: [id number] Reading Location: [place] [address] Lucero Jones MD IMG CT PROCEDURES Final R esult * POCT creatinine for contrast evaluation (01/08/2025 8:41 AM CDT) Creatinine POC 0.80 0.80 - 1.30 mg/dL Comment:Testing performed by : [facility], [address] [place] [address]., [id number] Blood 01/08/2025 8:41 AM CDT 01/08/2025 8:41 AM CDT Lucero Jones MD POINT OF CARE TEST ORDERA BLES Final Result [facility] [address] [facility] Department [place] [address] * PSA diagnostic (05/01/2017 12:39 PM CDT) PSA-Total 0.3 0.1 - 4.0 ng/mL [facility] Blood specimen (specimen) 05/01/2017 12:39 PM CDT 05/01/2017 12:44 PM CDT us Notinfile Unknown LAB BLOOD ORDERABLES Final Res ult CHRISTINE DH[facility] Department [place] [address] from Last 3 Months or Most Recently Relevant to Health Maintenance Insurance MEDICARE [employer] MEDICARE [employer] MEDICARE [employer] Care Teams Administrative Resources Associate Relationship Specialty Start Date End Date Fernando Venegas MD [address] [address] PCP - General Family Medicine 12/30/24
--- OUTSIDE RECORDS SUMMARY | 2025-02-23 14:28 | XMS_ITS ---
Author Organization [facility] Address [address] [place], [place] [id number] Care Team Providers Care Metal Hanging Supervisor Name Role Phone Fernando Venegas Primary Care Provider UnavailChana Pederson Unavailable [phone] REASON FOR VISIT Prednisone Encounters Encounter Location Date Provider Diagnosis [facility] [address], [address] [place], [place] [phone] 02/17/2025 Chana Gonsalves PLAN OF TREATMENT Next Appt Details Provider Name:Shoshana de la vega, 03/03/2025 08:20:00 AM, [address], [address], [place], [place], [id number],
--- OUTSIDE RECORDS SUMMARY | 2025-02-23 14:28 | XMS_ITS | Clinical Summary ---
Author Organization [facility] Address [address] [place] [address] Care Team Providers Care Heel Seater Name Role Phone Gatito Little MD Primary [...] Active triamcinolone 0.1 % cream 04/17/2020 Active [place]-3 Fatty Acids (OMEGA-3 2100) 1050 MG Cap [...] 36.6 C (97.8 F) 08/18/2018 1:15 PM HOME SCHOOL COORDINATOR Respiratory Rate 18 08/18/2018 1:15 PM HOME SCHOOL COORDINATOR Oxygen Saturation 95% 04/04/2021 4:14 PM CDT [...] age to complete this topic Insurance MEDICARE [employer] Care Teams Heel Seater Relationship Specialty Start Date End Date Gatito Little MD [address] [facility] [address] [place] [address] PCP - General 04/04/14
== END 2025-02-23 14:24 | disposition home or self-care (01) ==
LOC: ANHCARD 14:25
PROVIDERS: PCP Family Medicine; Visit Provider Family Medicine
DX: R60.9 Edema, unspecified (principal)
CPT/HCPCS: 93306